=== PATIENT | male | born 1990 | race Two or more races ===

== ENCOUNTER 2016-11-15 20:05 | Emergency (ER) | payer OTHER ==
[2016-11-15 20:10] VITALS: PULSE 84; RESP 16; TEMP 98.6
--- NOTE | 2016-11-15 21:30 | EDPHY ---
H & P Stated Complaint: throat pain w/recent course of abx without resolution Source: Patient Exam Limitations: No limitations - Personal History Current Tetanus/Diphtheria Vaccine: No - Medical/Surgical History Hx Asthma: No Hx Chronic Respiratory Disease: No Hx Diabetes: No Hx Cardiac Disease: No Hx Renal Disease: No Hx Cirrhosis: No Hx Alcoholism: No Hx HIV/AIDS: No Hx Splenectomy or Spleen Trauma: No Other PMH: PMHx: denies. PSHx: nasal - Social History Smoking Status: Never smoked Time Seen by Provider: 11/15/16 21:06 HPI/ROS: CHIEF COMPLAINT: left-sided throat pain HISTORY OF PRESENT ILLNESS: 26-year-old male presents emergency department complaining of a 4 day history of left-sided throat and ear pain. Patient reports pain with swallowing. No nasal congestion, no cough, no shortness of breath. Patient reports his pain is only on the left side. No fevers or chills , no abdominal pain. Patient is visiting from [place]. (Giselle Phipps) - Physical Exam Exam: General: Alert, nontoxic. ENT: Tympanic membranes clear, external auditory canal, external ear and surrounding soft tissue including over the mastoid unremarkable. Nasopharynx is not injected, there is no rhinorrhea. Oropharynx without erythema or edema. There is no exudate. Mild bilateral tonsillar hypertrophy, left tonsillar stone removed with Q-tip, No asymmetry. The uvula is midline. No elevation of tongue. There is no hoarseness. No drooling, patient has good control of their oral secretions. No trismus. No stridor. Cardiac: Regular rate and rhythm. Respiratory: Lungs clear to auscultation bilaterally. Neurological: no meningismus. Skin: No rashes. (Giselle Phipps) Constitutional: Initial Vital Signs Temperature (C) 37 C 11/15/16 20:07 Heart Rate 84 11/15/16 20:07 Respiratory Rate 16 11/15/16 20:07 Blood Pressure 131/73 H 11/15/16 20:07 O2 Sat (%) 95 11/15/16 20:07 O2 Delivery Mode Room Air Allergies/Adverse Reactions: No Known Allergies Allergy (Unverified 11/15/16 20:07) Home Medications: Medication Instructions Recorded Fluticasone Nasal [Flonase Nasal 1 sprays NASAL DAILY #1 mdi 11/15/16 Pope (RX)] Medical Decision Making ED Course/Re-evaluation: Patient with a large left tonsillar stone, this was removed without difficulty with a Q-tip. Patient tolerated this well. I have recommended gargling with salt water after meals and he has been given strict return precautions. (Giselle Phipps) I did not see this patient while he was in the emergency department. However his care was discussed with the nurse practitioner while the patient was in the department. I agree with treatment plan and management (Gasper Lew) Departure - Departure Disposition: Home, Routine, Self-Care Clinical Impression: Tonsillar calculus Condition: Good Instructions: Allergies (ED) Additional Instructions: Gargle with warm salt water 3 times a day. Use 1 spray of Flonase in each nostril daily, take Zyrtec daily. Return to the emergency department for worsening symptoms, new symptoms or concerns. Referrals: NONE *PRIMARY CARE P,. [Primary Care Provider] - As per Instructions Prescriptions: Fluticasone Nasal [Flonase Nasal Pope (RX)] 1 sprays NASAL DAILY #1 mdi
[2016-11-15 23:07] VITALS: BP 128/84; O2SAT 97
== END 2016-11-15 23:06 | disposition home or self-care (01) ==
DX: J35.8 Other chronic diseases of tonsils and adenoids (principal)